=== PATIENT | male | born 1940 | race Caucasian/White ===

== ENCOUNTER 2016-09-07 16:41 | Emergency (ER) | payer OTHER ==
[~2016-09-07] VITALS: Ht 180.3 cm; Wt 113.4 kg
[2016-09-07 17:00] VITALS: BP_SYST 144
[2016-09-07 19:48] VITALS: BP_SYST 144
== END 2016-09-07 19:48 | disposition home or self-care (01) ==
LOC: SED 16:41
DX: S80.11XA Contusion of right lower leg, initial encounter (principal); E11.9 Type 2 diabetes mellitus without complications; I10 Essential (primary) hypertension; W22.8XXA Striking against or struck by other objects, initial encounter; Y93.89 Activity, other specified; Y92.89 Other specified places as the place of occurrence of the external cause; Y99.8 Other external cause status
CPT/HCPCS: 93971; 99284

== ENCOUNTER 2016-09-26 12:45 | Emergency (ER) | payer OTHER ==
[~2016-09-26] VITALS: Ht 175.3 cm; Wt 113.4 kg
[2016-09-26 13:03] VITALS: BP_SYST 145
--- NOTE | 2016-09-26 13:10 | NUR ---
Pt was brought to bed 8 and report was endorsed by Fabrizio SHELLEY
--- NOTE | 2016-09-26 13:13 | NUR ---
Pt states hit his right lateral lower leg on the [employer] 2 weeks ago and came here to get it lacerated and packed with dressing, he removed the dressing at home and it is still not healing. The pt has a lump with discoloration and dried drainage, no complaints of pain. No other injuries/complaints per pt or noted.
--- NOTE | 2016-09-26 13:27 | NUR ---
ER at bedside examining patient.
[2016-09-26 14:04] VITALS: BP_SYST 140
--- NOTE | 2016-09-26 14:04 | NUR ---
Patient given written and verbal discharge instructions and verbalizes understanding. ER MD discussed with patient the results and treatment provided. Patient in stable condition. ID arm band removed. No Rx given. Patient educated on pain management and to follow up with PMD. Pain Scale 0. Opportunity for questions provided and answered.
== END 2016-09-26 13:27 | disposition home or self-care (01) ==
LOC: SED 12:48
DX: M79.81 Nontraumatic hematoma of soft tissue (principal)
CPT/HCPCS: 99283